=== PATIENT | male | born 1980 | race Caucasian/White ===

== ENCOUNTER → 2018-02-25 | Outpatient (CLI) | payer OTHER ==
--- NOTE | 2018-02-26 10:37 | Diagnostic Imaging Report ---
EXAMINATION: MRI of the lumbar spine without contrast HISTORY: Low back pain for last 4 weeks after having a 15 COMPARISON: None. TECHNIQUE: Sagittal T1, T2, STIR; axial T2 and proton density. FINDINGS: It is assumed that there are 5 lumbar vertebrae. Curvature/Alignment: Mild reversal of the lumbar lordosis centered at L2-L3.. Vertebrae: No evidence of recent fracture, infection, or neoplasm. Schmorl nodes from partially visualized T10 down to L4. Conus: Normal, terminating at L1-L2 Cauda equina: Unremarkable. Lower thoracic: Unremarkable. Paraspinal soft tissues: Partially visualized T2 hyperintense probable cyst in the upper pole of the left kidney with layering hypointense signal within it which may represent hemorrhage. Additional T2 hyperintense lesion in the spleen. Degenerative changes: T11-T12: Mild symmetric disc bulge with a tiny central disc protrusion, no significant stenosis. L1-L2: Minimal symmetric disc bulge without stenosis L2-L3: Moderate symmetric disc bulge with a small left posterolateral annular fissure. No significant canal or foraminal stenosis L3-L4: Asymmetric to the right disc bulge with a small 3 mm right subarticular disc protrusion minimally narrows the right lateral recess. Otherwise no significant canal or foraminal stenoses L4-L5: Unremarkable. L5-S1: Asymmetric to the last disc full chest with a small 3 mm AP diameter left articular disc protrusion which mildly narrows the left lateral recess. Otherwise no significant canal or foraminal stenosis. Sacroiliac joints: Unremarkable. IMPRESSION: 1. Reversal of the lumbar lordosis centered at L2-L3. 2. Mild narrowing of the right lateral recess at L3-L4 and left lateral recess at L5-S1 due to degenerative changes and small disc protrusions without definite nerve root compression. 3. Mild degenerative changes in the above-mentioned additional levels without significant canal or foraminal stenosis. 4. Partially visualized complex cyst in the left kidney and T2 hyperintense lesion in the spleen, a renal and left upper quadrant ultrasound is recommended for further evaluation. Signed by: Dr. Pilar Brar M.D. on 02/26/2018 10:33 AM
== END ==
LOC: MRI 11:04
PROVIDERS: ATTEND Family Medicine
DX: M47.817 Spondylosis without myelopathy or radiculopathy, lumbosacral region (principal)
CPT/HCPCS: 72148

== ENCOUNTER → 2018-03-25 | Outpatient (CLI) | payer OTHER, SELFPAY ==
--- NOTE | 2018-03-25 11:43 | Diagnostic Imaging Report ---
PROCEDURE:US ABDOMEN LIMITED COMPARISON:MRI lumbar spine 02/17/18. INDICATIONS:Splenic Lesion TECHNIQUE: Morejon-scale and color Doppler transverse and longitudinal images of the left upper quadrant of the abdomen were obtained. FINDINGS: Spleen: Measures 11.8 cm in length. The echotexture is normal. A unilocular cyst measures 17 x 20 x 21 mm. Left kidney: Measures 14.2 cm in length. The echotexture is normal. A unilocular cyst in the upper pole measures 3.5 x 3.4 x 3.7 cm. No renal calculi. CONCLUSION: 1. Simple splenic cyst.. 2. Simple left renal cyst. Dictated by: Ford Giraldo M.D. on 03/25/2018 at 11:44 Electronically approved by: Ford Giraldo M.D. on 03/25/2018 at 11:44
== END ==
LOC: US 10:29
PROVIDERS: ATTEND Family Medicine
DX: D73.9 Disease of spleen, unspecified (principal)
CPT/HCPCS: 76705

== ENCOUNTER → 2020-01-04 | Outpatient (CLI) | payer BC ==
--- NOTE | 2020-01-05 11:24 | Electroencephalogram ---
DATE OF STUDY: REQUESTING PHYSICIAN: STUDY: 30-minute EEG. EEG is being done for anxiety. EEG DATA: We see increased beta activity, increased muscle activity in the bifrontal regions. Intermittent high-amplitude slowing noted, symptoms during this EEG suggested of movement rather than neurophysiological abnormalities. The patient is tachycardic throughout the artifact of the study. The patient has increased muscle tone especially in the bifrontal regions and temporal regions throughout the study, again this adds to artifact of the recording. The posterior dominant rhythm is noted at times when patient is relaxed to be about 9 hertz frequency, which is within normal limits. There is no sleep test during the study. EEG INTERPRETATION: 10-20 international electrode placement system and for about 30 minutes, bipolar transverse and referential montages. We see abnormal studies for the following findings: 1. Increased beta activity . 2. Intermittent high amplitude slow wave. 3. Significant artifact both muscle artifact and EKG tachycardic artifact. INTERPRETATION: This EEG is abnormal, but the abnormality suggests either anxiety or medication reaction causing increased beta activity and other abnormalities are technical. 1. The patient is tachycardic throughout the EEG with EKG rhythm running above 112 in 30 minutes study. 2. There is a lot of muscle artifact limiting the value or the validity of the study. However, there is no evidence of seizure activity during the recording period. Increased beta activity can suggest either chronic pain or possible chronic anxiety, bipolar disorder, lisset can also be a secondary effect of medication such that in the presence of anxiolytics including benzodiazepines and tricyclic antidepressants amongst others. Overall, this EEG does not suggest underlying or focal dysfunction. CHENG DE LA FUENTE MD RR/MODL /[id number]
== END ==
LOC: SLEEP 12:07
PROVIDERS: ATTEND Family Medicine
DX: Z79.899 Other long term (current) drug therapy (principal)
CPT/HCPCS: 95812